=== PATIENT | male | born 1995 | race Caucasian/White ===

== ENCOUNTER 2016-10-05 12:05 | Emergency (ER) | payer OTHER ==
[2016-10-05 12:14] VITALS: RESP 16; O2SAT 98
--- NOTE | 2016-10-05 12:28 | EDPHY ---
H & P Time Seen by Provider: 10/05/16 12:15 HPI/ROS: CHIEF COMPLAINT: "I have a tailbone issue" HISTORY OF PRESENT ILLNESS: 20-year-old immunocompetent male with no prior history of pilonidal abscess/cyst complaining of progressive pain erythema at the cleft of his buttocks for the past 1-2 weeks. No fever no chills. No pain with defecation. No abdominal pain. No flu-like symptoms. PHYSICAL EXAM (Prior to examination, patient consented to physical exam, hands were washed and my usual and customary physical exam procedures followed) 1) GENERAL: Well-developed, well-nourished, alert and oriented. AppearsNontoxic. 2) HEAD: Normocephalic 3) HEENT: sclera anicteric 4) LUNGS: Breathing comfortably. 5) SKIN: cleft of the patient's buttock he has erythema, induration and fluctuance consistent with pilonidal abscess. No extension to the perianal region. Smoking Status: Current every day smoker Constitutional: Initial Vital Signs Temperature (C) 36.9 C 10/05/16 12:09 Heart Rate 82 10/05/16 12:09 Respiratory Rate 16 10/05/16 12:09 Blood Pressure 142/82 H 10/05/16 12:09 O2 Sat (%) 98 10/05/16 12:09 O2 Delivery Mode Room Air Allergies/Adverse Reactions: No Known Allergies Allergy (Unverified 10/05/16 12:15) Home Medications: Medication Instructions Recorded Cephalexin [Keflex] 500 mg PO QID 7 Days 10/05/16 Hydrocodone/APAP 5/325 [[place] 1 tab PO Q6 PRN #7 tab 10/05/16 5/325 (RX)] MDM/Departure - MDM Procedures: Procedure: Abscess drainage. The patient's suspected abscess was located on the cleft of the buttock consistent with pilonidal abscess . Discussed indications risks benefits with patient and I obtained verbal consent from the patient to drain the abscess who was informed about the possibility of bleeding and pain. Areas prepped draped normal sterile fashion, anesthetized with 1% lidocaine with epinephrine. Using 18 gauge needle purulent material was aspirated for culture and sensitivity. The abscess was incised with a 11scalpel and a moderate amount of purulent drainage was expressed. I irrigated the wound . The patient tolerated the procedure well. The procedure was performed by myself. ED Course/Re-evaluation: Patient has been incised and drained and started on monotherapy with Keflex as he notes no history of chronic skin infections or known history of MRSA. Recommend follow-up with General surgery. Informed that this may be a recurrent issue. Doubt perianal or perirectal abscess. Usual and customary discharge precautions instructions provided. - Depart Disposition: Home, Routine, Self-Care Clinical Impression: Pilonidal abscess Condition: Good Instructions: Pilonidal Cyst (ED) Additional Instructions: Return to the ER if you develop new or worsening symptoms, if you develop fever or chills or any other symptoms that concern you Prescriptions: Cephalexin [Keflex] 500 mg PO QID 7 Days Hydrocodone/APAP 5/325 [[place] 5/325 (RX)] 1 tab PO Q6 PRN #7 tab PRN Reason: Pain, Severe Referrals: Malorie Andrew MD [Medical Doctor] - 2-3 days, call for appt. (Dr. Malorie Andrew is a general surgeon)
[2016-10-05 13:11] VITALS: BP 121/77; PULSE 106; TEMP 98.8
== END 2016-10-05 13:11 | disposition home or self-care (01) ==
PROC: 0J990ZZ Drainage of Buttock Subcutaneous Tissue and Fascia, Open Approach (ICD-10-PCS; principal; 2016-10-05)
DX: L05.01 Pilonidal cyst with abscess (principal); F17.200 Nicotine dependence, unspecified, uncomplicated